=== PATIENT | male | born 1955 | race Caucasian/White ===

== ENCOUNTER 2017-06-19 11:01 | Outpatient (CLI) | payer OTHER ==
[2017-06-19] MEDS ORDERED: ISOVUE-370 76%-LOCM 1 ML ONE (13:43)
== END 2017-06-19 11:02 | disposition home or self-care (01) ==
LOC: BICCT 11:01
PROVIDERS: ATTEND Family Medicine
DX: R10.84 Generalized abdominal pain (principal); R74.8 Abnormal levels of other serum enzymes; K85.90 Acute pancreatitis without necrosis or infection, unspecified; D18.03 Hemangioma of intra-abdominal structures; R60.0 Localized edema; N28.1 Cyst of kidney, acquired; N20.0 Calculus of kidney; R91.8 Other nonspecific abnormal finding of lung field
CPT/HCPCS: 74170

== ENCOUNTER 2018-04-03 12:27 | Outpatient (CLI) | payer OTHER ==
[2018-04-03] MEDS ORDERED: ISOVUE-370 76%-LOCM 1 ML ONE (12:34)
--- NOTE | 2018-04-03 15:57 | CT ---
CT ABDOMEN AND PELVIS WITH IV AND ORAL CONTRAST: Date: 04/03/18 HISTORY: Abdominal pain. Reflux. COMPARISON: 06/19/17. FINDINGS: Lung bases are clear. A 0.2 cm calculus within a nondilated theresa at the inferior pole of the left kidney is stable. Small cysts of the liver and right kidney are again demonstrated. Small hemangioma within the dome of the a nterior segment right liver lobe is unchanged in appearance. Pancreas is now normal. No evidence of b owel obstruction or inflammation. Degenerative changes lumbar spine. Urinary bladder is incompletely distended. IMPRESSION: Small left renal calculus and other chronic-type findings are stable. No acute abnormalities are demo nstrated to explain abdominal pain. POS: H
== END 2018-04-03 12:28 | disposition home or self-care (01) ==
LOC: BICCT 12:27
PROVIDERS: ATTEND Physician Assistant Medical
DX: K21.9 Gastro-esophageal reflux disease without esophagitis (principal); R10.33 Periumbilical pain; R93.3 Abnormal findings on diagnostic imaging of other parts of digestive tract; N20.0 Calculus of kidney
CPT/HCPCS: 74177; Q9966

== ENCOUNTER 2019-05-12 13:56 | Outpatient (CLI) | payer OTHER ==
--- NOTE | 2019-05-12 15:44 | MRI ---
MR the lumbar spine without contrast INDICATION: Low back pain; left hip discomfort; history of lumbar back surgery in March 2018. COMPARISON: MR the lumbar spine without contrast dated November 13, 2017 TECHNIQUE: Multiplanar multisequence MR images were obtained of lumbar spine without IV contrast. FINDINGS: Bone marrow: There is susceptibility artifact from posterior lateral spinal instrumentation spanning L5-S1. There is an intervertebral cage at L5-S1. Distal spinal cord and conus: Normal. The conus seen to terminate at L1. Visualized retroperitoneum and paraspinal soft tissues: Stable right inferior pole 1.9 cm renal cyst. No lymphadenopathy or free fluid is evident. Vertebral levels: L5-S1: The susceptibility artifact slightly limits image detail at L5-S1; however, no appreciable colleen tral canal or neural foraminal narrowing is demonstrated. There is improved alignment at L5-S1.. L4-5: There is a broad-based disc bulge with moderate facet joint degenerative change that is stable to the prior exam inducing mild to moderate left and mild right neural foraminal narrowing. This appears stable to the prior exam. L3-4: There is a broad-based disc bulge with a superimposed central disc protrusion, which is new fro m the prior exam. There is mild central canal narrowing with mild ventral effacement of the subarachnoid space without nerve root impingement. The broad-based bulge with facet hypertrophy at L3 -4 induces mild bilateral neural foraminal narrowing. L2-3: There is mild facet joint degenerative change but no appreciable central canal or neural forami nal narrowing. L1-L2: No appreciable central canal or neuroforaminal narrowing. T12-L1: No appreciable central canal or neuroforaminal narrowing. IMPRESSION: 1. 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 There is improvement in the alignment at L5-S1. No appreciable central canal or neural foraminal narrowing is demonstrated at this level. 2. Stable [id number] left and mild right neural foraminal narrowing at L4-5. 3. Interval development of a small central disc protrusion at L3-4 causing mild effacement of ventral subarachnoid space without nerve root impingement. There is stable mild bilateral neural foraminal narrowing at L3-4. 4. Stable right renal cyst.
== END 2019-05-12 13:57 | disposition home or self-care (01) ==
LOC: BICMRI 13:56
PROVIDERS: ATTEND Orthopaedic Surgery Orthopaedic Surgery of the Spine
DX: M54.5 Low back pain (principal); N28.1 Cyst of kidney, acquired; M48.061 Spinal stenosis, lumbar region without neurogenic claudication; M51.26 Other intervertebral disc displacement, lumbar region; Z98.1 Arthrodesis status
CPT/HCPCS: 72148

== ENCOUNTER 2020-04-12 14:59 | Emergency (ER) | payer BC, OTHER ==
[2020-04-12] MEDS ORDERED: Ketorolac Tromethamine 30 MG/ML VIAL ONE ×2 (15:36→15:37)
[2020-04-12] MEDS ORDERED: diphenhydrAMINE 50 MG/ML VIAL ONE (15:37)
[2020-04-12] MEDS ORDERED: Ondansetron PF 4 MG/2 ML Vial ONE (15:39)
[2020-04-12 15:40] LABS: #Basophils 0.1 thou/uL (0.0-0.2); #Eosinphils 0.1 thou/uL (0.0-0.7); #Lymphocytes 1.9 thou/uL (1.20-3.40); #Monocytes 0.6 thou/uL (0.11-0.59); #Neutrophils 3.6 thou/uL (1.40-6.50); %Basophils 1.1 % (0.0-1.0); %Eosinophils 1.3 % (0.0-10.0); %Monocytes 9.3 % (0.0-10.0); %Neutrophils 57.4 % (42.0-75.0); Hemoglobin 15.6 g/dL (14.0-18.0); Mean Corpuscular HGB CONC 34.5 g/dL (32.0-36.0); Mean Corpuscular Hemoglobin 32.1 pg (27.0-31.0); Mean Platelet Volume 6.9 fL (7.4-10.4); Platelet Count 263 thou/uL (130-400); Red Blood Cell (RBC) Count 4.87 mill/uL (4.70-6.10); White Blood Cell (WBC) Count 6.3 thou/uL (4.8-10.8)
[2020-04-12] MEDS ORDERED: Morphine 4 MG/ML VIAL ONE ×2 (15:55→16:14)
[2020-04-12 16:00] LABS: ALT (SGPT) 28 U/L (8-55); AST (SGOT) 25 U/L (5-34); Albumin 4.8 g/dL (3.4-4.8); Alkaline Phosphatase 85 U/L (40-110); Anion Gap 16 mmol/L (10-20); BUN (Urea Nitrogen) 14 mg/dL (8.4-25.7); Bilirubin, Total 0.4 mg/dL (0.2-1.2); Calc. Creatinine Clearance 0 mL/min (70-130); Calcium 9.5 mg/dL (7.8-10.44); Carbon Dioxide 24 mmol/L (23-31); Chloride 105 mmol/L (98-107); Globulin 3.3 g/dL (2.4-3.5); Glucose 105 mg/dL (80-115); Potassium 4.1 mmol/L (3.5-5.1); Protein, Total 8.1 g/dL (5.8-8.1); Sodium 141 mmol/L (136-145)
--- NOTE | 2020-04-12 17:06 | CT ---
CT ABDOMEN AND PELVIS WITHOUT IV CONTRAST: INDICATIONS: Right flank pain. COMPARISON: CT abdomen and pelvis from 04/03/2018. FINDINGS: The lung bases are clear. The liver, spleen and pancreas are unremarkable. There are several scattered hepatic cystic lesions, which are stable. Prior exam revealed an enhancing lesion in the superior right lobe, suggesting ana ngioma. This lesion is of low density today and is stable in size and appearance. Stomach and duodenu m are unremarkable. Adrenal glands are normal. Review of the kidneys show mild right hydronephrosis. There is a 3 to 4 mm obstructing calculus in th e proximal right ureter. There are approximately four nonobstructing calculi in the upper collecting structures of the left ki dney. These measure in the 2 to 3 mm range. No obstructing calculus in the left ureter. The urinary b ladder is unremarkable. Small bowel loops appear normal. Appendix is normal. Colon unremarkable. Aorta of normal caliber. Pos top changes at L5-S1. IMPRESSION: 1. A 4 mm obstructing calculus, proximal right ureter, producing mild right hydronephrosis. 2. Several nonobstructing calculi in the upper collecting structures of the left kidney. 3. There are several hepatic cysts and a low density lesion in the superior right lobe of the liver, which are all stable. POS: AGW
[2020-04-12] MEDS ORDERED: HYDROcodone/Acetaminophen 5/325 mg Tablet ONE (17:07)
== END 2020-04-12 17:17 | disposition home or self-care (01) ==
LOC: ERS 14:59
DX: N13.2 Hydronephrosis with renal and ureteral calculous obstruction (principal); R11.0 Nausea; I10 Essential (primary) hypertension; K21.9 Gastro-esophageal reflux disease without esophagitis
CPT/HCPCS: 74176; 80053; 85025; 96374; 96375; J1200; J1885; J2270; J2405

== ENCOUNTER 2020-05-30 09:44 | Outpatient (CLI) | payer BC ==
[2020-05-30 10:23] LABS: #Eosinphils 0.1 10x3/uL (0.0-0.5); #Monocytes 0.4 10x3/uL (0.0-1.1); #Neutrophils 2.5 10x3/uL (1.5-8.4); %Basophils 0.2 % (0.0-2.0); %Eosinophils 1.6 % (0.0-6.0); %Lymphocytes 31.3 % (18.0-47.0); %Monocytes 8.2 % (0.0-10.0); %Neutrophils 58.5 % (40.0-75.0); Hemoglobin 14.2 g/dL (13.5-17.5); Mean Corpuscular HGB CONC 33.7 g/dL (32.0-36.0); Mean Corpuscular Hemoglobin 31.2 pg (27.0-33.0); Mean Corpuscular Volume 92.5 fl (81.2-95.1); Mean Platelet Volume 9.4 fl (7.4-10.4); Platelet Count 207 10x3/uL (150-450); RBC Distribution Width 12.6 % (11.5-14.5); Red Blood Cell (RBC) Count 4.55 10x6/uL (4.32-5.72); White Blood Cell (WBC) Count 4.3 10x3/uL (3.5-10.5)
[2020-05-30 10:42] LABS: ALT (SGPT) 27 U/L (8-55); AST (SGOT) 19 U/L (5-34); Albumin 4.6 g/dL (3.4-4.8); Alkaline Phosphatase 82 U/L (40-110); Anion Gap 11 mmol/L (10-20); BUN (Urea Nitrogen) 13 mg/dL (8.4-25.7); Bilirubin, Total 0.5 mg/dL (0.2-1.2); Calc. Creatinine Clearance 0 mL/min (70-130); Calcium 9.3 mg/dL (7.8-10.44); Carbon Dioxide 28 mmol/L (23-31); Chloride 108 mmol/L (98-107); Globulin 2.5 g/dL (2.4-3.5); Glucose 125 mg/dL (80-115); Potassium 4.8 mmol/L (3.5-5.1); Protein, Total 7.1 g/dL (5.8-8.1); Sodium 142 mmol/L (136-145)
[2020-05-31 02:03] LABS: SARS-CoV-2 PCR by NAA Not Detected (NotDetected)
== END 2020-05-30 09:45 | disposition home or self-care (01) ==
LOC: LABBT 09:44
PROVIDERS: ATTEND Family Medicine
DX: Z01.818 Encounter for other preprocedural examination (principal); K42.9 Umbilical hernia without obstruction or gangrene; Z20.822 Contact with and (suspected) exposure to COVID-19
CPT/HCPCS: 80053; 85025; 87635; 93005; 93010; U0003; U0005

== ENCOUNTER 2020-06-02 06:13 | Day surgery (SDC) | payer BC ==
[2020-06-01 10:50] VITALS: BMI 27.9
[2020-06-02] MEDS ORDERED: SUGAMMADEX SODIUM 500 MG/5 ML VIAL ONE (06:22)
[2020-06-02] MEDS ORDERED: Midazolam HCl 2 mg/2 ml Vial ONE (06:22)
[2020-06-02] MEDS ORDERED: Fentanyl 250 MCG/5 ML VIAL ONE (06:22)
[2020-06-02] MEDS ORDERED: Bupivacaine 0.25% HCL 30 ML VIAL ONE (06:39)
[2020-06-02] MEDS ORDERED: Lidocaine 2% w/Epinephrine 1:200K 20 ML VIAL ONE (06:39)
[2020-06-02] MEDS ORDERED: Rocuronium Bromide 10 MG/ML (10ML VIAL) ONE (07:53)
[2020-06-02] MEDS ORDERED: ePHEDrine Sulfate 50 MG/10 ML VIAL ONE (07:53)
[2020-06-02] MEDS ORDERED: Dexamethasone 20 MG/5 ML VIAL ONE (07:53)
[2020-06-02] MEDS ORDERED: PROPOFOL 200 MG/20 ML VIAL ONE (07:53)
[2020-06-02] MEDS ORDERED: Lidocaine 1% PF 5 ML VIAL ONE (07:53)
[2020-06-02] MEDS ORDERED: Ondansetron PF 4 MG/2 ML Vial ONE (07:53)
[2020-06-02] MEDS ORDERED: Ketorolac Tromethamine 30 MG/ML VIAL ONE (07:53)
[2020-06-02] MEDS ORDERED: Fentanyl 100 MCG/2 ML VIAL ONE (08:41)
[2020-06-02] MEDS ORDERED: Promethazine HCl 25 MG/ML VIAL ONE (08:54)
[2020-06-02] MEDS ORDERED: HYDROcodone/Acetaminophen 5/325 mg Tablet ONE (09:45)
== END 2020-06-02 10:45 | disposition home or self-care (01) ==
LOC: SDC 06:13
PROVIDERS: ATTEND Surgery
PROC: 0WUF07Z Supplement Abdominal Wall with Autologous Tissue Substitute, Open Approach (ICD-10-PCS; principal; 2020-06-02)
DX: K43.9 Ventral hernia without obstruction or gangrene (principal); K21.9 Gastro-esophageal reflux disease without esophagitis; M19.90 Unspecified osteoarthritis, unspecified site; Z79.899 Other long term (current) drug therapy
CPT/HCPCS: J0690; J1100; J1885; J2250; J2405; J2550; J2704; J3010; S0020

== ENCOUNTER 2021-10-23 04:57 | Emergency (ER) | payer BC, MEDICARE ==
[2021-10-23] MEDS ORDERED: Ondansetron PF 4 MG/2 ML Vial ONE ×2 (05:08→06:29)
[2021-10-23] MEDS ORDERED: Ketorolac Tromethamine 30 MG/ML VIAL ONE (05:09)
[2021-10-23 06:08] LABS: #Eosinphils 0.1 thou/uL (0.0-0.7); #Monocytes 0.7 thou/uL (0.11-0.59); #Neutrophils 4.8 thou/uL (1.40-6.50); %Basophils 0.1 % (0.0-1.0); %Eosinophils 1.4 % (0.0-10.0); %Lymphocytes 25.8 % (21.0-51.0); %Neutrophils 63.6 % (42.0-75.0); Mean Corpuscular HGB CONC 34.1 g/dL (32.0-36.0); Mean Corpuscular Hemoglobin 32.2 pg (27.0-31.0); Mean Corpuscular Volume 94.3 fL (78.0-98.0); Mean Platelet Volume 7.1 fL (7.4-10.4); Platelet Count 245 thou/uL (130-400); Red Blood Cell (RBC) Count 4.65 mill/uL (4.70-6.10); White Blood Cell (WBC) Count 7.6 thou/uL (4.8-10.8)
[2021-10-23 06:27] LABS: ALT (SGPT) 20 U/L (8-55); AST (SGOT) 17 U/L (5-34); Albumin 4.6 g/dL (3.4-4.8); Alkaline Phosphatase 83 U/L (40-110); Anion Gap 16 mmol/L (10-20); BUN (Urea Nitrogen) 18 mg/dL (8.4-25.7); Bilirubin, Total 0.5 mg/dL (0.2-1.2); Calc. Creatinine Clearance 0 mL/min (70-130); Calcium 9.9 mg/dL (7.8-10.44); Carbon Dioxide 27 mmol/L (23-31); Chloride 102 mmol/L (98-107); Estimated GFR 64; Globulin 3.4 g/dL (2.4-3.5); Glucose 139 mg/dL (80-115); Potassium 4.4 mmol/L (3.5-5.1); Sodium 141 mmol/L (136-145)
[2021-10-23 08:45] LABS: Bacteria/HPF None Seen HPF (None Seen); Bilirubin Negative (Negative); Blood, Urine 3+ (Negative); Clarity Clear (Clear); Glucose, Urine (Dipstick) Normal (Negative); Ketone, Urine Negative (Negative); Leukocyte Negative Leu/uL (Negative); Nitrite Negative (Negative); Protein, Urine (Dipstick) 10 mg/dL (Neg-Trace); RBC/HPF Greater than 50 HPF (0-3); Specific Gravity, Urine 1.019 (1.002-1.036); Squamous Epithelial None Seen HPF (0-3); WBC/HPF 0-3 HPF (0-3)
== END 2021-10-23 09:20 | disposition home or self-care (01) ==
LOC: ERS 04:57
DX: N13.2 Hydronephrosis with renal and ureteral calculous obstruction (principal); I10 Essential (primary) hypertension; K21.9 Gastro-esophageal reflux disease without esophagitis; Z79.899 Other long term (current) drug therapy
CPT/HCPCS: 74176; 80053; 81003; 81015; 85025; 87086; 96374; 96375; 96376; J1885; J2405

== ENCOUNTER 2023-01-10 08:48 | Emergency (ER) | payer MEDICARE ==
[2023-01-10] MEDS ORDERED: Ketorolac Tromethamine 30 MG/ML VIAL ONE (09:12)
[2023-01-10] MEDS ORDERED: Ondansetron PF 4 MG/2 ML Vial ONE (09:12)
[2023-01-10] MEDS ORDERED: Morphine 4 MG/ML VIAL ONE ×2 (09:12→09:47)
[2023-01-10 09:29] LABS: #Monocytes 0.3 thou/uL (0.11-0.59); #Neutrophils 5.9 thou/uL (1.40-6.50); %Basophils 0.1 % (0.0-1.0); %Eosinophils 0.3 % (0.0-10.0); %Lymphocytes 14.7 % (21.0-51.0); %Monocytes 4.6 % (0.0-10.0); %Neutrophils 80.2 % (42.0-75.0); Hematocrit 43.6 % (42.0-52.0); Hemoglobin 15.1 g/dL (14.0-18.0); Mean Corpuscular HGB CONC 34.6 g/dL (32.0-36.0); Mean Corpuscular Hemoglobin 31.6 pg (27.0-31.0); Mean Corpuscular Volume 91.2 fl (78.0-98.0); Mean Platelet Volume 9.4 fL (7.4-10.4); Platelet Count 243 10x3/uL (130-400); RBC Distribution Width 12.7 % (11.5-14.5); Red Blood Cell (RBC) Count 4.78 mill/uL (4.70-6.10); White Blood Cell (WBC) Count 7.4 10x3/uL (4.8-10.8)
[2023-01-10 09:47] LABS: Bacteria/HPF None Seen HPF (None Seen); Bilirubin Negative (Negative); Blood, Urine 3+ (Negative); CAUTI Indications for Culture Pelvic or flank pain; Clarity Clear (Clear); Glucose, Urine (Dipstick) Normal (Negative); Ketone, Urine 10 mg/dL (Negative); Leukocyte Negative Leu/uL (Negative); Nitrite Negative (Negative); Protein, Urine (Dipstick) 20 mg/dL (Neg-Trace); RBC/HPF 21-50 HPF (0-3); Specific Gravity, Urine 1.023 (1.002-1.036); Squamous Epithelial 0-3 HPF (0-3); Urobilinogen Normal mg/dL (Less than 2); WBC/HPF 0-3 HPF (0-3); pH, Urine 6.5 (5.0-9.0)
[2023-01-10 09:52] LABS: Urine Culture Reflex No No
[2023-01-10 09:56] LABS: ALT (SGPT) 24 U/L (8-55); AST (SGOT) 21 U/L (5-34); Albumin 4.7 g/dL (3.4-4.8); Alkaline Phosphatase 87 U/L (40-110); Anion Gap 15 mmol/L (10-20); BUN (Urea Nitrogen) 15 mg/dL (8.4-25.7); Bilirubin, Total 0.5 mg/dL (0.2-1.2); Calc. Creatinine Clearance 0 mL/min (70-130); Calcium 9.6 mg/dL (7.8-10.44); Carbon Dioxide 21 mmol/L (23-31); Chloride 107 mmol/L (98-107); Estimated GFR 62; Globulin 3.2 g/dL (2.4-3.5); Glucose 183 mg/dL (80-115); Potassium 4.3 mmol/L (3.5-5.1); Protein, Total 7.9 g/dL (5.8-8.1); Sodium 139 mmol/L (136-145)
== END 2023-01-10 10:41 | disposition home or self-care (01) ==
LOC: ERS 08:48
DX: N13.2 Hydronephrosis with renal and ureteral calculous obstruction (principal); K76.89 Other specified diseases of liver; I10 Essential (primary) hypertension; R31.9 Hematuria, unspecified; K21.9 Gastro-esophageal reflux disease without esophagitis; Z79.899 Other long term (current) drug therapy
CPT/HCPCS: 74176; 80053; 81001; 85025; 87086; 93005; 96361; 96374; 96375; J1885; J2270; J2405

== ENCOUNTER 2025-02-14 09:46 | Outpatient (CLI) | payer MEDICARE, OTHER ==
[2025-02-14 10:54] LABS: Estimated GFR - POC 73.0
== END 2025-02-14 09:47 | disposition home or self-care (01) ==
LOC: SCSULT 09:46 → SCSMRI 09:47
PROVIDERS: ATTEND Internal Medicine Gastroenterology
DX: K85.90 Acute pancreatitis without necrosis or infection, unspecified (principal); K76.9 Liver disease, unspecified; D18.03 Hemangioma of intra-abdominal structures; K76.89 Other specified diseases of liver
CPT/HCPCS: 36415; 76376; 76705; 82565 ×2; S8037; 74183